=== PATIENT | male | born 1990 | race Caucasian/White ===

== ENCOUNTER 2017-03-05 14:50 | Emergency (ER) | payer OTHER ==
--- NOTE | 2017-03-05 15:15 | ED.ADGEN ---
Adult General Chief Complaint Chief Complaint: TESTICULAR PAIN OR INJURY HPI HPI Patient is a 27 year old woman, with no significant past medical history, who presents to the emergency department with a complaint of right flank pain that began several hours ago, associated with nausea, which then radiated down to the right flank around to the right testicle. Patient states his last bowel was this morning and was normal. He denies any vomiting, any fevers or chills, any focal weakness, numbness, tingling, chest pain, shortness of breath, injuries or similar symptoms previously. Denies any dysuria, discharge or hematuria. He has not taken any medications prior to coming to the ED. Patient is extremely uncomfortable upon arrival, describes the pain as aching which will then become sharp and stabbing, and a waxing and waning pattern. No previous abdominal surgeries, no swelling extremities, no rashes, no travel, sick contacts or exposures. Review of Systems Review of Systems Constitutional: Denies fever or chills. [] Eyes: Denies change in visual acuity. [] HENT: Denies nasal congestion or sore throat. [] Respiratory: Denies cough or shortness of breath. [] Cardiovascular: Denies chest pain or edema. [] GI: Right flank pain, right lower quadrant pain, radiating to the right testicle , associated with nausea, no vomiting, no bloody stools or diarrhea. : Denies dysuria. [] Musculoskeletal: Denies back pain or joint pain. [] Integument: Denies rash. [] Neurologic: Denies headache, focal weakness or sensory changes. [] Endocrine: Denies polyuria or polydipsia. [] Lymphatic: Denies swollen glands. [] Psychiatric: Denies depression or anxiety. [] Current Medications Current Medications Current Medications Medications (Trade) Dose Ordered Sig/Jonah Start Time Stop Time Status Last Admin Dose Admin Hydromorphone HCl (Dilaudid) 0.5 mg PRN Q15MIN PRN 03/05/17 15:15 03/05/17 16:24 DC 03/05/17 15:25 0.5 MG Ketorolac Tromethamine (Toradol) 10 mg 1X ONCE 03/05/17 15:15 03/05/17 15:16 DC 03/05/17 15:24 10 MG Ondansetron HCl (Zofran) 4 mg 1X ONCE 03/05/17 15:15 03/05/17 15:16 DC 03/05/17 15:25 4 MG Oxycodone/ Acetaminophen (Percocet 5/325) 1 tab 1X ONCE 03/05/17 16:15 03/05/17 16:16 DC 03/05/17 16:20 1 TAB Sodium Chloride 1,000 ml @ 1,000 mls/hr Q1H 03/05/17 15:07 03/05/17 16:06 DC 03/05/17 15:24 1,000 MLS/HR Allergies Allergies Allergies Coded Allergies Type Severity Reaction Last Updated Verified No Known Drug Allergies 03/05/17 No Physical Exam Physical Exam Constitutional: Well developed, well nourished, no acute distress, non-toxic appearance. [] HENT: Normocephalic, atraumatic, bilateral external ears normal, oropharynx moist, no oral exudates, nose normal. [] Eyes: PERRLA, EOMI, conjunctiva normal, no discharge. [] Neck: Normal range of motion, no tenderness, supple, no stridor. [] Cardiovascular:Heart rate regular rhythm, no murmur, S1, S2, rubs or gallops. [] Lungs & Thorax: Bilateral breath sounds clear to auscultation, no wheezing, rhonchi, rales. No chest wall crepitus or tenderness. [] Abdomen: Bowel sounds normal, soft, tenderness to palpation in the right flank, right lower quadrant, radiating down towards the right testicle, no rebound or rigidity,, no masses, no pulsatile masses. [] Skin: Warm, dry, no erythema, no rash. [] Back: No tenderness, positive for right-sided CVA tenderness. Extremities: No tenderness, no cyanosis, no clubbing, ROM intact, no edema. Negative Homans sign.[] Neurologic: Alert and oriented X 3, normal motor function, normal sensory function, no focal deficits noted. [] Psychologic: Affect normal, judgement normal, mood normal. [] examination: Patient with normal-appearing uncircumcised genitalia, cremaster reflex intact bilaterally, no lesions or other abnormalities identified on testicular examination. Current Patient Data Vital Signs Vital Signs Date Time Temp Pulse Resp B/P (MAP) Pulse Ox O2 Delivery O2 Flow Rate FiO2 03/05/17 16:00 64 18 115/60 (78) 100 Room Air 03/05/17 14:50 98.2 98.2 Lab Values Laboratory Tests Test 03/05/17 15:00 03/05/17 15:10 Urine Collection Type Unknown Urine Color Yellow Urine Clarity Clear Urine pH 6.0 Urine Specific [place] >=1.030 Urine Protein Negative mg/dL (NEG-TRACE) Urine Glucose (UA) Negative mg/dL (NEG) Urine Ketones (Stick) Negative mg/dL (NEG) Urine Blood Negative (NEG) Urine Nitrite Negative (NEG) Urine Bilirubin Negative (NEG) Urine Urobilinogen Dipstick 0.2 mg/dL (0.2 mg/dL) Urine Leukocyte Esterase Negative (NEG) Urine RBC 0 /HPF (0-2) Urine WBC Occ /HPF (0-4) Urine Bacteria 0 /HPF (0-FEW) Urine Mucus Marked /LPF White Blood Count 7.8 x10^3/uL (4.0-11.0) Red Blood Count 5.06 x10^6/uL (4.30-5.70) Hemoglobin 14.5 g/dL (13.0-17.5) Hematocrit 42.1 % (39.0-53.0) Mean Corpuscular Volume 83 fL (79-100) Mean Corpuscular Hemoglobin 29 pg (25-35) Mean Corpuscular Hemoglobin Concent 34 g/dL (31-37) Red Cell Distribution Width 13.2 % (11.5-14.5) Platelet Count 299 x10^3/uL (140-400) Neutrophils (%) (Auto) 51 % (31-73) Lymphocytes (%) (Auto) 36 % (24-48) Monocytes (%) (Auto) 11 % (0-9) H Eosinophils (%) (Auto) 2 % (0-3) Basophils (%) (Auto) 1 % (0-3) Neutrophils # (Auto) 4.0 x10^3uL (1.8-7.7) Lymphocytes # (Auto) 2.8 x10^3/uL (1.0-4.8) Monocytes # (Auto) 0.8 x10^3/uL (0.0-1.1) Eosinophils # (Auto) 0.2 x10^3/uL (0.0-0.7) Basophils # (Auto) 0.0 x10^3/uL (0.0-0.2) Sodium Level 137 mmol/L (136-145) Potassium Level 3.5 mmol/L (3.5-5.1) Chloride Level 102 mmol/L (98-107) Carbon Dioxide Level 21 mmol/L (21-32) Anion Gap 14 (6-14) Blood Urea Nitrogen 21 mg/dL (8-26) Creatinine 1.0 mg/dL (0.7-1.3) Estimated GFR (Cockcroft-Gault) 89.6 BUN/Creatinine Ratio 21 (6-20) H Glucose Level 111 mg/dL (70-99) H Calcium Level 9.1 mg/dL (8.5-10.1) Total Bilirubin 0.3 mg/dL (0.2-1.0) Aspartate Amino Transferase (AST) 31 U/L (15-37) Alanine Aminotransferase (ALT) 50 U/L (16-63) Alkaline Phosphatase 59 U/L (46-116) Total Protein 8.1 g/dL (6.4-8.2) Albumin 4.1 g/dL (3.4-5.0) Albumin/Globulin Ratio 1.0 (1.0-1.7) Laboratory Tests 03/05/17 15:10 Laboratory Tests 03/05/17 15:10 EKG EKG Not indicated.[] Radiology/Procedures Radiology/Procedures [][facility] [address] [place], [place] [id number] IMAGING REPORT Signed PATIENT: NINO KRAMER ACCOUNT: [id number] : 1990 LOCATION: ER AGE: 27 SEX: M EXAM STATUS: PRE ER ORD. PHYSICIAN: SHERWIN RUSS DO REASON: R flank/RLQ pain radiating to testicle PROCEDURE: CT ABDOMEN PELVIS WO CONTRAST CT of the abdomen and pelvis without contrast, 03/05/2017: History: Right flank pain radiating to the right testicle Noncontrast scans were obtained utilizing the renal stone protocol. There is a single tiny nonobstructing intrarenal calculus in the lower pole the left kidney. No right intrarenal calculi are seen. The renal collecting systems and ureters are not dilated. No ureteral calculus is seen. There is a tiny 2 mm radiopacity present along the posterior wall of the urinary bladder. The findings raise the possibility of recent passage of a ureteral calculus into the bladder. The unopacified liver is unremarkable. No gallbladder abnormality is seen. No pancreatic abnormality is detected. The spleen is of normal size. No abdominal or pelvic adenopathy is seen. The bowel loops are not dilated. The appendix is visualized and shows no abnormality. No free air or free fluid is evident in the abdomen or pelvis. IMPRESSION: 1. Tiny nonobstructing left intrarenal calculus. 2. Small radiopacity along the posterior wall of the urinary bladder raising the possibility of a recently passed ureteral calculus. Has the patient's flank pain abated? PQRS Compliance Statement: One or more of the following individualized dose reduction techniques were utilized for this examination: 1. Automated exposure control 2. Adjustment of the mA and/or kV according to patient size 3. Use of iterative reconstruction technique DICTATED and SIGNED BY: FIDE CARCAMO MD DATE: 03/05/17 1547 CC: SHERWIN RUSS DO ~ Course & Med Decision Making Course & Med Decision Making Pertinent Labs and Imaging studies reviewed. (See chart for details) Patient acutely uncomfortable arousing the emergency department, but is afebrile , with vital signs within normal limits. History examination concerning for possible renal calculi, versus other intra-abdominal pathology. After discussion , patient is agreeable for laboratory studies, treatment with IV fluids, antiemetics and pain medication, and CT of abdomen and pelvis to further elucidate his symptoms. Patient received IV Toradol, Zofran, normal saline, and hydromorphone with good effect. Patient resting comfortably on reevaluation, states pain is almost fully resolved. CT reveals evidence of a likely recently passed renal calculi, consistent with the patient's complaints and examination as stated, with no evidence of other abdominal pathology, patient's laboratory studies are unremarkable, with no evidence of infection either in urine or in the blood. I did discuss findings with patient, who is relieved with these findings, and as stated is resting completely at this time. Discussed with patient that he may experience some residual discomfort, but that he should not be exhibiting any new or concerning symptoms as discussed, discussed with patient importance of hydration, concerning symptoms that would prompt return to the ED, and establishing a primary care provider for general medical care. Patient voiced understanding and agreement, discharged home in stable condition with plan, cautions, prescription for anti-inflammatories and short course of Percocet to be used as directed, with sister. Rogelio Disclaimer Dragon Disclaimer This electronic medical record was generated, in whole or in part, using a voice recognition dictation system. Departure Impression: Primary Impression: Renal calculus, right Disposition: 01 HOME, SELF-CARE Condition: IMPROVED Scripts Oxycodone/Apap 5-325 (PERCOCET 5-325 MG TABLET) 1 Each Tablet 1 TAB PO PRN Q6HRS Y for PAIN, #6 TAB 0 Refills Prov: SHERWIN RUSS DO 03/05/17 Naproxen (NAPROXEN) 250 Mg Tablet 250 MG PO PRN BID Y for PAIN, #6 Prov: SHERWIN RUSS DO 03/05/17 SHERWIN RUSS DO Mar 05, 2017 15:15
[2017-03-05 15:23] LABS: BILIRUBIN,URINE NEGATIVE (NEG); GLUCOSE,URINE NEGATIVE (NEG); NITRITE,URINE NEGATIVE (NEG); PROTEIN,URINE NEGATIVE (NEG-TRACE); UROBILINOGEN,URINE 0.2 mg/dL (0.2 mg/dL)
[2017-03-05] MEDS: IV NORMAL SALINE 1000ML BAG 1,000 ML IV SCH (15:24)
[2017-03-05] MEDS: KETOROLAC 30 MG/ML INJ. IV ONE (15:24)
[2017-03-05 15:25] LABS: BASO % 1 % (0-3); EOS % 2 % (0-3); HEMATOCRIT 42.1 % (39.0-53.0); HEMOGLOBIN 14.5 g/dL (13.0-17.5); LYMPH # 2.8 x10^3/uL (1.0-4.8); LYMPH % 36 % (24-48); MEAN CORPUSCULAR HEMOGLOBIN 29 pg (25-35); MEAN CORPUSCULAR HGB CONC 34 g/dL (31-37); MEAN CORPUSCULAR VOLUME 83 fL (79-100); MONO % 11 % (0-9); NEUT % 51 % (31-73); PLATELET COUNT 299 x10^3/uL (140-400); RED BLOOD COUNT 5.06 x10^6/uL (4.30-5.70); RED CELL DISTRIBUTION WIDTH 13.2 % (11.5-14.5); WHITE BLOOD COUNT 7.8 x10^3/uL (4.0-11.0)
[2017-03-05] MEDS: HYDROmorphone 2 MG/ML VIAL IV/SQ PRN (15:25)
[2017-03-05] MEDS: ONDANSETRON PF 4 MG/2 ML VIAL. IV ONE (15:25)
[2017-03-05 15:39] LABS: CALCIUM 9.1 mg/dL (8.5-10.1); GFR 89.6; POTASSIUM 3.5 mmol/L (3.5-5.1)
[2017-03-05 15:45] LABS: ALBUMIN 4.1 g/dL (3.4-5.0); TOTAL BILIRUBIN 0.3 mg/dL (0.2-1.0); TOTAL PROTEIN 8.1 g/dL (6.4-8.2)
[2017-03-05 15:48] LABS: BACTERIA,URINE 0 /HPF (0-FEW); RBC,URINE 0 /HPF (0-2); WBC,URINE OCC /HPF (0-4)
--- NOTE | 2017-03-05 15:56 | RAD ---
CT of the abdomen and pelvis without contrast, 03/05/2017: History: Right flank pain radiating to the right testicle Noncontrast scans were obtained utilizing the renal stone protocol. There is a single tiny nonobstructing intrarenal calculus in the lower pole the left kidney. No right intrarenal calculi are seen. The renal collecting systems and ureters are not dilated. No ureteral calculus is seen. There is a tiny 2 mm radiopacity present along the posterior wall of the urinary bladder. The findings raise the possibility of recent passage of a ureteral calculus into the bladder. The unopacified liver is unremarkable. No gallbladder abnormality is seen. No pancreatic abnormality is detected. The spleen is of normal size. No abdominal or pelvic adenopathy is seen. The bowel loops are not dilated. The appendix is visualized and shows no abnormality. No free air or free fluid is evident in the abdomen or pelvis. IMPRESSION: 1. Tiny nonobstructing left intrarenal calculus. 2. Small radiopacity along the posterior wall of the urinary bladder raising the possibility of a recently passed ureteral calculus. Has the patient's flank pain abated? PQRS Compliance Statement: One or more of the following individualized dose reduction techniques were utilized for this examination: 1. Automated exposure control 2. Adjustment of the mA and/or kV according to patient size 3. Use of iterative reconstruction technique
[2017-03-05 16:00] VITALS: BP 115/60
[2017-03-05] MEDS ORDERED: NAPR250T6 PO (16:13)
[2017-03-05] MEDS ORDERED: OXYC-323 PO (16:13)
[2017-03-05] MEDS: oxyCODONE/APAP 5/325 1 TAB TABLET PO ONE (16:20)
== END 2017-03-05 16:20 | disposition home or self-care (01) ==
LOC: ER 14:50
DX: N20.0 Calculus of kidney (principal)
CPT/HCPCS: 36415; 74176; 80053; 81001; 85025; 96361; 96374; 96375; 99285; J1170; J1885; J2405; J7030